=== PATIENT | female | born 1985 | race African-American/Black ===

== ENCOUNTER 2016-12-28 07:24 | Day surgery (SDC) | payer OTHER ==
[2016-12-28] VITALS (11 sets, daily range): BP systolic 117–163; BP diastolic 58–88; PULSE 66–88; RESP 14–18; Ht 175.3 cm; Wt 121.0 kg
[~2016-12-28] VITALS: Ht 175.3 cm; Wt 121.0 kg
[2016-12-28] MEDS ORDERED: FER325 PO (08:01)
[2016-12-28] MEDS ORDERED: LACTATED RINGER'S 1,000 ML IV SCH (08:30)
[2016-12-28] MEDS ORDERED: CEFAZOLIN 2 GM/50 ML (PMX) 50 ML IVPB SCH (09:00)
[2016-12-28] MEDS ORDERED: LIDOCAINE 2% (MDV) 20 ML INJ ONE (09:20)
[2016-12-28] MEDS ORDERED: BUPIVACAINE 0.5% (SDV) 30 ML INJ ONE (09:20)
--- NOTE | 2016-12-28 09:36 | HPN ---
Date/Time of Note Date/Time of Note DATE: 12/28/16 TIME: 09:35 Interval H&P Admission Note Pt. seen H&P reviewed: No system changes ASHLEY MARLOW DPM Dec 28, 2016 09:35
[2016-12-28] MEDS ORDERED: MIDAZOLAM 1 MG/ML 2 ML INJ ONE (09:44)
[2016-12-28] MEDS ORDERED: FENTAnyl 50 MCG/ML VIAL ONE (09:44)
[2016-12-28] MEDS ORDERED: PROPOFOL 20 ML ONE (09:44)
[2016-12-28] MEDS ORDERED: METOCLOPRAMIDE 10 MG INJ ONE (09:48)
[2016-12-28] MEDS ORDERED: ROPIVACAINE 0.5 % 30 ML VIAL ONE (09:48)
[2016-12-28] MEDS ORDERED: CEFAZOLIN 1 GM INJ ONE ×2 (10:12→10:20)
[2016-12-28] MEDS ORDERED: HYDROmorphONE 2 MG/ML SYG ONE (10:46)
[2016-12-28] MEDS ORDERED: POLYMYXIN/BACITRACIN 1L IRRIG IRR ONE (11:05)
[2016-12-28] MEDS ORDERED: METOCLOPRAMIDE 10 MG INJ IV PRN (11:30)
[2016-12-28] MEDS ORDERED: hydrALAzine 20 MG INJ IV PRN (11:30)
[2016-12-28] MEDS ORDERED: MEPERIDINE 25 MG INJ IV PRN (11:30)
[2016-12-28] MEDS ORDERED: ONDANSETRON 4 MG INJ IV PRN (11:30)
[2016-12-28] MEDS ORDERED: OXYCODONE/ACETAMINOPHEN (5/325) TAB PO PRN ×2 (11:30)
[2016-12-28] MEDS ORDERED: HYDROmorphONE (0.2 MG/ML) 10ML SYG IV PRN ×2 (11:30)
[2016-12-28] MEDS ORDERED: DIPHENHYDRAMINE 50 MG INJ IV PRN (11:30)
[2016-12-28] MEDS ORDERED: LABETALOL HCL 20MG INJ IV PRN (11:30)
[2016-12-28] MEDS ORDERED: KETOROLAC 30 MG INJ ONE (11:53)
[2016-12-28] MEDS ORDERED: POLYMYXIN/BACITRACIN 1L IRRIG ONE (12:19)
--- NOTE | 2016-12-28 12:26 | OPPN ---
Date/Time of Note Date/Time of Note DATE: 12/28/16 TIME: 12:24 Operative Report Preoperative Diagnosis Brachymetatarsi left fourth metatarsal bone Left foot pain Postoperative Diagnosis Brachymetatarsi left fourth metatarsal bone Left foot pain Operation/Procedure Performed Left fourth metatarsal bone lengthening Application of mini external fixation device Intra operative use and interpretation of fluoroscopy Provider: ASHLEY MARLOW DPM Anesthesia: general Estimated blood loss: minimal Specimens NONE Complications: None ASHLEY MARLOW DPM Dec 28, 2016 12:26
[2016-12-28] MEDS: HYDROmorphONE (0.2 MG/ML) 10ML SYG IV PRN ×2 (12:33→12:57)
--- NOTE | 2016-12-28 14:44 | RADRPT ---
PROCEDURE: Intraoperative imaging of the left foot with fluoroscopy. CLINICAL INDICATION: Left foot pain. Short left fourth metatarsal. Intraoperative. TECHNIQUE: 79 images of the left foot were obtained in the operating room with an image intensifie r. No radiologist was in attendance. 2 minutes and 28 seconds of fluoroscopy time was used. COMPARISON: No prior study is available for comparison. FINDINGS: Images demonstrate surgical instruments overlying the fourth metatarsal. IMPRESSION: 1. Intraoperative imaging of the left foot. RPTAT: QQ .Kahlil Albarado MD, MD Date Time Electronically viewed and signed by .Kahlil Albarado MD, on 12/28/2016 14:44 .R/
--- NOTE | 2016-12-28 15:13 | RADRPT ---
PROCEDURE: XR Left Foot. CLINICAL INDICATION: Left foot pain. Postop. TECHNIQUE: Three views. Frontal, lateral, and oblique. COMPARISON: None. FINDINGS: There has been recent surgery with an external fixation device in the fourth metatarsal. A pin is p resent in the fourth toe. There is no fracture or dislocation. Articular surfaces are intact. There is no lytic or blastic lesion. IMPRESSION: 1. Satisfactory postoperative appearance of the left foot. RPTAT: QQ .Kahlil Albarado MD, Date Time Electronically viewed and signed by .Kahlil Albarado MD, on 12/28/2016 15:13 .R/
== END 2016-12-28 15:10 | disposition home or self-care (01) ==
LOC: SDS 07:24
PROVIDERS: ATTEND Podiatrist Foot & Ankle Surgery
DX: Q66.89 Other specified congenital deformities of feet (principal); F32.0 Major depressive disorder, single episode, mild; M79.672 Pain in left foot; E66.01 Morbid (severe) obesity due to excess calories; Z68.39 Body mass index [BMI] 39.0-39.9, adult
CPT/HCPCS: 20690; 28308; 73630; C1713; J0690; J1170; J1885; J2175; J2250; J2405; J2765; J2795; J3010; L3260; Z7512; Z7610

== ENCOUNTER 2017-03-29 10:17 | Day surgery (SDC) | payer OTHER ==
[2017-03-29] VITALS (13 sets, daily range): BP systolic 97–122; BP diastolic 58–75; PULSE 66–84; RESP 14–18; Ht 175.3 cm; Wt 122.5 kg
[~2017-03-29] VITALS: Ht 175.3 cm; Wt 122.5 kg
[~2017-03-29 10:17] MED LIST: ATROPINE 1 MG/10 ML SYRINGE IV PRN; DIPHENHYDRAMINE 50 MG INJ IV PRN; EPHEDrine SULFATE 50 MG/5 ML SYG IV PRN; FENTAnyl 50 MCG/ML VIAL IV PRN; FER325 PO; HYDROmorphONE (0.2 MG/ML) 10ML SYG IV PRN; LABETALOL HCL 20MG INJ IV PRN; MEPERIDINE 25 MG INJ IV PRN; MIDAZOLAM 1 MG/ML 2 ML INJ IV PRN; ONDANSETRON 4 MG INJ IV PRN; OXYCODONE/ACETAMINOPHEN (5/325) TAB PO PRN; hydrALAzine 20 MG INJ IV PRN; morphine (1 MG/ML) 10ML SYRINGE IV PRN
[2017-03-29] MEDS ORDERED: GLYCOPYRROLATE 0.4 MG INJ ONE (11:19)
[2017-03-29] MEDS ORDERED: LIDOCAINE 2% (SDV) 5 ML INJ ONE (11:19)
[2017-03-29] MEDS ORDERED: PROPOFOL 20 ML ONE (11:19)
[2017-03-29] MEDS ORDERED: ROCURONIUM 50 MG INJ ONE (11:19)
[2017-03-29] MEDS ORDERED: NEOSTIGMINE 3 MG/3 ML SYRINGE ONE (11:19)
[2017-03-29] MEDS ORDERED: MIDAZOLAM 1 MG/ML 2 ML INJ ONE (11:20)
[2017-03-29] MEDS ORDERED: FENTAnyl 50 MCG/ML VIAL ONE (11:20)
[2017-03-29] MEDS ORDERED: ONDANSETRON 4 MG INJ ONE (11:20)
[2017-03-29] MEDS ORDERED: DEXAMETHASONE 4 MG/ML 1 ML INJ ONE (11:20)
[2017-03-29] MEDS ORDERED: CEFAZOLIN 1 GM INJ ONE (11:22)
--- NOTE | 2017-03-29 12:08 | HPN ---
Date/Time of Note Date/Time of Note DATE: 03/29/17 TIME: 12:08 Interval H&P Admission Note Pt. seen H&P reviewed: No system changes ASHLEY MARLOW DPM Mar 29, 2017 12:08
[2017-03-29] MEDS ORDERED: BUPIVACAINE 0.5% (SDV) 30 ML INJ ONE (12:23)
[2017-03-29] MEDS ORDERED: LIDOCAINE 2% (MDV) 20 ML INJ ONE (12:23)
[2017-03-29] MEDS ORDERED: MUPIROCIN 2% 15 GM CR ONE (12:58)
--- NOTE | 2017-03-29 13:16 | OPPN ---
Date/Time of Note Date/Time of Note DATE: 03/29/17 TIME: 13:14 Operative Report Preoperative Diagnosis S/P left fourth metatarsal lengthening with mini external fixation Morbid obesity Postoperative Diagnosis S/P left fourth metatarsal lengthening with mini external fixation Morbid obesity Operation/Procedure Performed Removal of mini external fixation from the left foot Removal of K-wire from left fourth toe Surgeon see signature line employment legal assistant none Anesthesia: MAC Estimated blood loss: minimal Transfusion Required none Specimen mini external fixation with four pins and a K-wire Grafts/Implants none Complications none ASHLEY MARLOW DPM Mar 29, 2017 13:16
--- NOTE | 2017-03-29 13:16 | OPR ---
Date/Time of Note Date/Time of Note DATE: 03/29/17 TIME: 13:16 Operative Report Procedure Date: Mar 29, 2017 Preoperative Diagnosis Status post left foot fourth metatarsal lengthening using a mini ex-fix Exposed K wire fixation left fourth toe Postoperative Diagnosis Status post left foot fourth metatarsal lengthening using a mini ex-fix Exposed K wire fixation left fourth toe Operation Performed Removal of K wire from the left fourth toe Removal of mini ex-fix from the left foot Surgeon see signature line Anesthesia Type: MAC Estimated Blood Loss: minimal Transfusion Required: no Specimens K wire and mini ex-fix device Complications: no Pt Condition Post Procedure: stable Disposition: PACU Indications This is a pleasant 32-year-old obese female patient who has had left fourth metatarsal lengthening using external fixation and K wire fixation of the left fourth toe. Patient has reached the desired length of toe and is ready for removal of the hardware. Recommended procedure: Mobile external fixation and K wire from the left foot. Risks and complications of this type of surgery was discussed with patient in great detail. Risks and complications discussed included, but are not limited to, postoperative infection, postoperative pain, hardware failure, malunion, nonunion, delayed union, failure of surgery to correct the problem, need for additional surgical procedures, deep venous thrombosis, limb loss and loss of life. Patient understands the discussion and agrees to the procedure. An informed consent was signed, obtained and placed in the chart. No guarantees or warrantees was given or implied as to the outcome of the procedure either in verbal or written form. Operative\Procedure Findings Removal of mini ex-fix device from the left foot. Removal of K wire from the left fourth toe. Procedure Description Procedure in detail: The patient was seen in the preoperative area. Proposed surgery was discussed with patient in great detail. Risks and complications were discussed. Opportunity was given to patient to ask questions and all questions were answered. No guarantee or warranty was given or implied as to the outcome of the procedure, either in verbal or written form. Patient acknowledges understanding of the discussion and agrees to the procedure. An informed consent was obtained, signed and placed in the chart. The patient was brought into the operating room and was placed on the operating table in the supine position. IV sedation was administered to the patient by the anesthesiologist. The left foot was scrubbed, prepped and draped in the usual aseptic manner. Procedure #1: Attention was directed to the left foot: The external fixation device was removed successfully. The K wire was removed successfully from the left fourth toe. I debrided the hyperkeratotic and devitalized tissue surrounding the pin sites. Sterile dressing was applied to the left foot. The patient tolerated the procedure and anesthesia well. She was transferred to the recovery room with vital signs stable and vascular status intact to the left foot. Patient will be discharged home after postoperative monitoring. Postoperative orders have been written. Patient will be followed up in 1 week. Weightbearing to tolerance left foot using postop shoe and crutches. ASHLEY MARLOW DPM Mar 29, 2017 13:16
--- NOTE | 2017-03-29 23:25 | RADRPT ---
PROCEDURE: XR Left Foot. CLINICAL INDICATION: Left foot pain. Postop. TECHNIQUE: Three views. Frontal, lateral, and oblique. COMPARISON: 12/28/2016. FINDINGS: The external fixation device in the fourth metatarsal and pin in the fourth toe has been removed. Healing of the fourth metatarsal is progressing. There is no acute fracture or dislocation. Articular surfaces are intact. There is no lytic or blastic lesion. There is no radiopaque foreign body. IMPRESSION: 1. Satisfactory postoperative appearance of the left foot. RPTAT: QQ .Kahlil Albarado MD, MD Date Time Electronically viewed and signed by .Kahlil Albarado MD, on 03/29/2017 23:25 .R/
== END 2017-03-29 14:50 | disposition home or self-care (01) ==
LOC: SDS 10:17
PROVIDERS: ATTEND Podiatrist Foot & Ankle Surgery
DX: Z47.89 Encounter for other orthopedic aftercare (principal); E66.01 Morbid (severe) obesity due to excess calories; Z68.39 Body mass index [BMI] 39.0-39.9, adult
CPT/HCPCS: 20694; 73630; 84703; 88300; J0690; J2175; J2250; J2405; J3010; Z7512; Z7610; J1100; J2710

== ENCOUNTER 2017-05-01 20:31 | Emergency (ER) | payer OTHER ==
[~2017-05-01] VITALS: Ht 175.3 cm; Wt 118.5 kg
[~2017-05-01 20:31] MED LIST changes: -ATROPINE 1 MG/10 ML SYRINGE IV PRN; -DIPHENHYDRAMINE 50 MG INJ IV PRN; -EPHEDrine SULFATE 50 MG/5 ML SYG IV PRN; -FENTAnyl 50 MCG/ML VIAL IV PRN; -HYDROmorphONE (0.2 MG/ML) 10ML SYG IV PRN; -LABETALOL HCL 20MG INJ IV PRN; -MEPERIDINE 25 MG INJ IV PRN; -MIDAZOLAM 1 MG/ML 2 ML INJ IV PRN; -ONDANSETRON 4 MG INJ IV PRN; -OXYCODONE/ACETAMINOPHEN (5/325) TAB PO PRN; -hydrALAzine 20 MG INJ IV PRN; -morphine (1 MG/ML) 10ML SYRINGE IV PRN
[2017-05-01 21:12] VITALS: Ht 175.3 cm; Wt 118.5 kg
[2017-05-02] MEDS ORDERED: IBUPROFEN 600 MG TAB PO ONE (01:00)
--- NOTE | 2017-05-02 02:00 | RADRPT ---
PROCEDURE: XR Chest. CLINICAL INDICATION: Chest pain. TECHNIQUE: Single frontal chest x-ray. COMPARISON: None. FINDINGS: The cardiomediastinal silhouette is unremarkable. There is no congestive heart failure.. No focal i nfiltrate is seen. There is no pleural effusion. There is no pneumothorax. The osseous structures are unremarkable. IMPRESSION: 1. No active disease. RPTAT: HMVK .Ayan Huertas MD, Date Time Electronically viewed and signed by .Ayan Huertas MD, MD on 05/02/2017 01:59 .K/
--- NOTE | 2017-05-02 02:02 | ERD ---
ER Documentation Chief Complaint Chief Complaint Breast pain [id number], intermittent. no pain at this time HPI This is an otherwise healthy 32-year-old female who presents the emergency department for complaints of left sided breast pain 3 months. Patient states that the pain has been intermittent and normally occurs at rest. She notes mild shortness of breath when she experiences the pain. She denies any cardiovascular history, shortness of breath currently or chest pain. ROS All systems reviewed and are negative except as per history of present illness. Medications Home Meds Active Scripts Acetaminophen* (Tylenol*) 325 Mg Tablet, 2 TAB PO Q6 Y for PAIN AND OR ELEVATED TEMP, #20 TAB Prov:AAMIR NORTON PA-C 05/02/17 Naproxen* (Naprosyn*) 500 Mg Tablet, 500 MG PO BID Y for PAIN AND/OR INFLAMMATION, #30 TAB Prov:AAMIR NORTON PA-C 05/02/17 Reported Medications Ferrous Sulfate* (Ferrous Sulfate*) 325 Mg Tabec, 325 MG PO DAILY, TAB 12/28/16 Allergies Allergies: Coded Allergies: No Known Allergy (Unverified , 05/01/17) PMhx/Soc History of Surgery: Yes (L FOOT SX 12/27/16) Anesthesia Reaction: No Hx Neurological Disorder: No Hx Respiratory Disorders: No Hx Cardiac Disorders: No Hx Psychiatric Problems: No Hx Miscellaneous Medical Probl: No Hx Alcohol Use: Yes (03/28) Hx Substance Use: No Hx Tobacco Use: No Smoking Status: Never smoker Physical Exam Vitals Vital Signs Date Time Temp Pulse Resp B/P Pulse Ox O2 Delivery O2 Flow Rate FiO2 05/01/17 21:12 98.3 101 16 138/84 97 Physical Exam Const: Developed, well-nourished, no acute distress Head: Atraumatic Eyes: Normal Conjunctiva ENT: Normal External Ears, Nose and Mouth. Neck: Full range of motion..~ No meningismus. Resp: No mass, erythema, swelling or rash to the skin of the left breast. No masses palpable. No tenderness upon palpation. Clear to auscultation bilaterally Cardio: Regular rate and rhythm, no murmurs Abd: Soft, non tender, non distended. Normal bowel sounds Skin: No petechiae or rashes Back: No midline or flank tenderness Ext: No cyanosis, or edema Neur: Awake and alert Psych: Normal Mood and Affect Results 24 hrs Current Medications Medications (Trade) Dose Ordered Sig/Ysabel Route PRN Reason Start Time Stop Time Status Last Admin Dose Admin Ibuprofen (Motrin) 600 mg ONCE ONCE PO 05/02/17 01:00 05/02/17 01:01 DC 05/02/17 01:06 Procedures/MDM PROCEDURE: XR Chest. CLINICAL INDICATION: Chest pain. TECHNIQUE: Single frontal chest x-ray. COMPARISON: None. FINDINGS: The cardiomediastinal silhouette is unremarkable. There is no congestive heart failure.. No focal infiltrate is seen. There is no pleural effusion. There is no pneumothorax. The osseous structures are unremarkable. IMPRESSION: 1. No active disease. RPTAT: HMVK .Ayan Huertas MD, MD Date Time Electronically viewed and signed by .Ayan Huertas MD, MD on 05/02/2017 01:59 .K/ EKG: Rate/Rhythm: Normal Sinus Rhythm QRS, ST, T-waves: No changes consistent w/ acute ischemia Impression: No evidence of ischemia or arrhythmia This is an otherwise healthy 40-year-old female who presents the emergency department for intermittent left breast pain 3 months. Patient denied any pain upon arrival. Physical exam without evidence of any breast mass, abscess, cellulitis, or tenderness. Patient without history of cardiopulmonary disease. Chest x-ray and EKG are unremarkable for acute process. Patient was well- appearing, pleasant, and in no acute distress upon arrival. Case discussed with Dr. Tu Borrego who agreed with plan to perform chest x- ray and EKG. Differential diagnosis includes but not limited to fibrocystic breast changes, breast mass, GERD, acute coronary syndrome, PE, DVT, pneumonia, pneumothorax. Patient to follow-up with primary care provider in 1-2 days. Strict return precautions discussed. Based on patient's history of present illness and physical examination the decision was made to discharge. The patient was re-evaluated after ED treatment and stabilizing measures, and symptoms have improved. There is no evidence of life threatening injuries or illnesses at this time. On re-examination, patient resting in no distress, stable vital signs, reports feeling better and safe for discharge with outpatient follow up with PMD in 1-2 days. Patient given return precautions. Departure Diagnosis: Primary Impression: Breast pain Condition: Good Additional Instructions: Call your primary care doctor TOMORROW for an appointment during the next 1-2 days.See the doctor sooner or return here if your condition worsens before your appointment time. AAMIR NORTON PA-C May 02, 2017 02:02
[2017-05-02] MEDS ORDERED: ACET325T33 PO (02:11)
[2017-05-02] MEDS ORDERED: NAPR-260 PO (02:11)
== END 2017-05-02 02:34 | disposition home or self-care (01) ==
LOC: FTE 20:31
DX: N64.4 Mastodynia (principal)
CPT/HCPCS: 71010; Z7502; Z7610